=== PATIENT | female | born 1970 | race Caucasian/White ===

== ENCOUNTER 2020-08-30 10:21 | Inpatient (IN) | payer MEDICAID ==
[~2020-08-30] VITALS: Ht 160 cm; Wt 57.1 kg
--- NOTE | 2020-08-30 10:59 | NUR ---
PT STATES SHE WOKE WITH BLURRED VISION IN R EYE LASTING 2 HOURS, PT WENT TO FOUND TO BE HYPERTENSIVE AND SENT HERE, PT DENIES HX HTN HAS NEVER TAKEN MEDICATIONS FOR HTN , ALTHOUGH HAS FAMILY HX. PT CURRENTLY WITH NO VISION CHANGES, NO [place] REPORTED, NO CP. PT BP 211/111. ER MD IN TO EVAL PT AT THIS TIME, AWAITING ORDERS. PT TO BP, CONT PULSE OX
--- NOTE | 2020-08-30 11:17 | NUR ---
OK WITH ERMD TO HOLD OFF ON PIV PLACEMENT AT THIS TIME, PT FEARFUL OF NEEDLES. PT MEDICATED PER NOV, WILL RE-EVAL
[2020-08-30] MEDS ORDERED: SODIUM CHLORIDE FLUSH 10ML SYR IVF ONE (11:30)
[2020-08-30 11:36] LABS: BASOPHILS % (AUTO) 0 % (0-1); EOSINOPHILS % (AUTO) 1 % (1-7); LYMPHOCYTES % (AUTO) 26 % (22-44); MEAN CORPUSCULAR HEMOGLOBIN 33.3 pg (27.0-34.8); MEAN PLATELET VOLUME 8.5 fL (7.4-10.4); MONOCYTES % (AUTO) 26 % (2-9); NEUTROPHILS % (AUTO) 47 % (42-75); PLATELET COUNT 235 x10^3/uL (130-400); RED BLOOD COUNT 4.13 x10^6/uL (3.82-5.3); RED CELL DISTRIBUTION WIDTH 13.2 % (9.6-15.2)
[2020-08-30 11:52] LABS: TROPONIN I < 0.015 ng/mL (0.000-0.045)
[2020-08-30 12:08] LABS: MD SCAN
[2020-08-30 13:26] LABS: ANION GAP 8 mmol/L (5-15); CALCIUM 9.6 mg/dL (8.5-10.1); CHLORIDE 101 mmol/L (98-107); CREATININE 0.64 mg/dL (0.55-1.02)
--- NOTE | 2020-08-30 13:48 | NUR ---
REPORT TO SEERNA NUÑEZ
--- NOTE | 2020-08-30 13:58 | NUR ---
PT RESTING IN [facility], NAD NOTED AT THIS TIME, WILL CONTINUE TO MONITOR. PER PT NO NEEDS AT THIS TIME.
[2020-08-30] MEDS ORDERED: ASPIRIN 81 MG TABLET CHEW ONE (14:45)
[2020-08-30] MEDS ORDERED: LISINOPRIL 10 MG TABLET ONE (14:51)
[2020-08-30] MEDS ORDERED: LISINOPRIL 10 MG TABLET PO ONE (15:00)
[2020-08-30] MEDS ORDERED: ASPIRIN 81 MG TABLET CHEW PO ONE (15:00)
[2020-08-30] MEDS ORDERED: GADOTERATE 7.5 MMOL/15 ML VIAL ONE (17:52)
[2020-08-30] MEDS ORDERED: HYDROmorphone 2 MG/ML, 1ML IVPush PRN (18:00)
[2020-08-30] MEDS ORDERED: TEMAZEPAM 15 MG CAPSULE PO PRN (18:00)
[2020-08-30] MEDS ORDERED: LACTATED RINGERS 1,000 ML IV SCH (18:00)
[2020-08-30] MEDS ORDERED: hydrALAzine 20 MG/ML, 1ML IVPush PRN (18:00)
[2020-08-30] MEDS ORDERED: ACETAMINOPHEN 325 MG TABLET PO PRN (18:00)
[2020-08-30] MEDS ORDERED: ONDANSETRON ODT 4 MG PO PRN (18:00)
[2020-08-30] MEDS ORDERED: HYDROcodone/APAP 5/325 TABLET PO PRN (18:00)
[2020-08-30] MEDS ORDERED: BISACODYL 10 MG SUPP PR PRN (18:00)
[2020-08-30] MEDS ORDERED: ONDANSETRON 2MG/ML, 2ML IVPush PRN (18:00)
[2020-08-30] MEDS ORDERED: POLYETHYLENE GLYCOL 17 GM PACKET PO PRN (18:00)
[2020-08-30] MEDS ORDERED: OMNIPAQUE 350 MG/ML, 100ML BOTTLE ONE (18:46)
[2020-08-30] MEDS ORDERED: AMLODIPINE 5 MG TABLET ONE (20:40)
[2020-08-30] MEDS ORDERED: HEPARIN 5,000 UNITS/ML, 1ML ONE (20:41)
[2020-08-30] MEDS: AMLODIPINE 5 MG TABLET PO SCH ×2 (20:43→21:53)
[2020-08-30] MEDS: HEPARIN 5,000 UNITS/ML, 1ML SQ SCH (20:43)
[2020-08-30 22:24] VITALS: BP 146/94
[2020-08-31] VITALS (8 sets, daily range): BP systolic 136–174; BP diastolic 86–103
[2020-08-31 02:15] LABS: MICROSCOPIC NOT IND
[2020-08-31] MEDS: ASPIRIN 81 MG TABLET EC PO SCH (05:34)
[2020-08-31] MEDS: HEPARIN 5,000 UNITS/ML, 1ML SQ SCH ×3 (05:34→20:23)
[2020-08-31 06:20] LABS: BASOPHILS % (AUTO) 1 % (0-1); EOSINOPHILS % (AUTO) 2 % (1-7); LYMPHOCYTES % (AUTO) 33 % (22-44); MEAN CORPUSCULAR HEMOGLOBIN 32.9 pg (27.0-34.8); MEAN CORPUSCULAR HGB CONC 33.7 g/dL (32.4-35.8); MEAN PLATELET VOLUME 8.6 fL (7.4-10.4); MONOCYTES % (AUTO) 26 % (2-9); NEUTROPHILS % (AUTO) 38 % (42-75); PLATELET COUNT 288 x10^3/uL (130-400); RED BLOOD COUNT 4.08 x10^6/uL (3.82-5.3); RED CELL DISTRIBUTION WIDTH 13.1 % (9.6-15.2)
[2020-08-31 06:24] LABS: ALBUMIN 3.7 g/dL (3.4-5.0); ANION GAP 3 mmol/L (5-15); CALCIUM 9.4 mg/dL (8.5-10.1); CHLORIDE 102 mmol/L (98-107)
[2020-08-31 06:42] LABS: MD NO
[2020-08-31 06:51] LABS: ALANINE AMINOTRANSFERASE 144 U/L (12-78); ALKALINE PHOSPHATASE 128 U/L (45-117); BILIRUBIN,TOTAL 0.9 mg/dL (0.2-1.0); CHOL/HDL RATIO 3.3; CHOLESTEROL, TOTAL 213 mg/dL (140-239); CREATININE 0.71 mg/dL (0.55-1.02); HDL CHOL % 30 % (28-40); HDL CHOLESTEROL (DIRECT) 64 mg/dL (40-60); LDL CHOLESTEROL,CALCULATED 132 mg/dL (54-169); LDL/HDL RATIO 2.1 (0.5-3.0); TOTAL PROTEIN 8.7 g/dL (6.4-8.2); TRIGLYCERIDES 85 mg/dL (50-200); VLDL CHOLESTEROL 17 mg/dL (0-25)
[2020-08-31 07:22] LABS: HCT (SEDRATE) 39.9 % (34.6-47.8)
[2020-08-31] MEDS ORDERED: MAGNESIUM SULFATE PMX 4GM/100M 100 ML ONE (07:23)
[2020-08-31] MEDS ORDERED: MAGNESIUM SULFATE PMX 4GM/100M 100 ML IVPB ONE (07:30)
[2020-08-31] MEDS: AMLODIPINE 5 MG TABLET PO SCH ×2 (07:32→20:22)
[2020-08-31] MEDS: PANTOPRAZOLE 40MG TABLET PO SCH (07:32)
[2020-08-31] MEDS ORDERED: LISINOPRIL 10 MG TABLET PO SCH (09:00)
[2020-08-31] MEDS: LISINOPRIL 10 MG TABLET PO SCH (20:23)
[2020-08-31] MEDS ORDERED: LISI-167 PO (21:53)
[2020-08-31] MEDS ORDERED: MELA5TAB14 PO (21:53)
[2020-08-31] MEDS ORDERED: AMLO-150 PO (21:53)
[2020-08-31] MEDS ORDERED: ASPI81TA45 PO (21:53)
[2020-09-01] MEDS ORDERED: hydrALAzine 20 MG/ML, 1ML IVPush PRN
[2020-09-01 00:15] VITALS: BP 120/77
[2020-09-01 04:30] VITALS: BP 144/82
[2020-09-01] MEDS: ASPIRIN 81 MG TABLET EC PO SCH (04:35)
[2020-09-01] MEDS: HEPARIN 5,000 UNITS/ML, 1ML SQ SCH ×2 (04:36→11:05)
[2020-09-01 05:01] LABS: ANION GAP 6 mmol/L (5-15); CALCIUM 9.1 mg/dL (8.5-10.1); CHLORIDE 104 mmol/L (98-107); CREATININE 0.73 mg/dL (0.55-1.02)
[2020-09-01] MEDS: PANTOPRAZOLE 40MG TABLET PO SCH (07:30)
[2020-09-01 07:45] VITALS: BP 149/95
[2020-09-01] MEDS: LISINOPRIL 10 MG TABLET PO SCH (08:10)
[2020-09-01] MEDS: AMLODIPINE 5 MG TABLET PO SCH (08:10)
[2020-09-01] MEDS ORDERED: AMOX1TAB64 PO (10:18)
[2020-09-01 13:32] VITALS: BP 137/85
== END 2020-09-01 16:58 | disposition home or self-care (01) | DRG 125 ==
LOC: ED 11:31 → EDIP 14:54 → 4WST 22:15
PROVIDERS: ADMIT Internal Medicine; ATTEND Internal Medicine
DX: H35.039 Hypertensive retinopathy, unspecified eye (principal); H53.129 Transient visual loss, unspecified eye; I16.1 Hypertensive emergency; E87.1 Hypo-osmolality and hyponatremia; E53.8 Deficiency of other specified B group vitamins; E78.5 Hyperlipidemia, unspecified; E83.42 Hypomagnesemia; H54.61 Unqualified visual loss, right eye, normal vision left eye; J01.00 Acute maxillary sinusitis, unspecified; Z79.82 Long term (current) use of aspirin; Z82.3 Family history of stroke; Z82.49 Family history of ischemic heart disease and other diseases of the circulatory system
CPT/HCPCS: 36415; 70450; 70496; 70498; 70553; 71045; 80048; 80053; 80061; 81003; 82607; 83036; 83735; 83880; 84100; 84443; 84484; 85025; 85651; 86592; 93005; 93306; 96374; 99285; G0378; J1644; Q9967; A9575; J0360; J3475; J7120

== ENCOUNTER 2020-10-09 10:58 | Emergency (ER) | payer MEDICAID ==
[~2020-10-09] VITALS: Ht 160 cm; Wt 54.5 kg
[~2020-10-09 10:58] MED LIST: AMLO-150 PO; AMOX1TAB64 PO; ASPI81TA45 PO; LISI-167 PO; MELA5TAB14 PO
[2020-10-09 11:00] VITALS: BP 111/77
--- NOTE | 2020-10-09 11:34 | NUR ---
Pt states she just moved to [place]. Pt given primary care reference list and RX.
== END 2020-10-09 11:46 | disposition home or self-care (01) ==
LOC: ED 11:30
DX: I10 Essential (primary) hypertension (principal); Z76.0 Encounter for issue of repeat prescription
CPT/HCPCS: 99281

== ENCOUNTER 2021-04-11 11:01 | Emergency (ER) | payer MEDICAID ==
[~2021-04-11] VITALS: Ht 160 cm; Wt 54.0 kg
[2021-04-11 13:23] LABS: MEAN CORPUSCULAR HEMOGLOBIN 35.9 pg (27.0-34.8); MEAN CORPUSCULAR HGB CONC 33.7 g/dL (32.4-35.8); MEAN PLATELET VOLUME 8.2 fL (7.4-10.4); PLATELET COUNT 246 x10^3/uL (130-400); RED BLOOD COUNT 2.78 x10^6/uL (3.82-5.3); RED CELL DISTRIBUTION WIDTH 16.3 % (9.6-15.2)
--- NOTE | 2021-04-11 13:25 | NUR ---
THIS IS A 50 YO F W/ C/O BILAT ANKLE EDEMA X2 WEEKS. PT REPORTS ONLY MEDICAL HX IS HTN. PT DENIES PAIN. PT RESTING ON [employer] W/ CALL LIGHT IN REACH, SIDE RAILS UPX2. NATE NICHOLS.
[2021-04-11 13:34] LABS: ALBUMIN 2.9 g/dL (3.4-5.0); ANION GAP 8 mmol/L (5-15); CALCIUM 8.5 mg/dL (8.5-10.1); CHLORIDE 98 mmol/L (98-107)
[2021-04-11 13:39] LABS: ALANINE AMINOTRANSFERASE 32 U/L (12-78); ALKALINE PHOSPHATASE 181 U/L (45-117); BILIRUBIN,TOTAL 3.1 mg/dL (0.2-1.0); CREATININE 0.69 mg/dL (0.55-1.02); TOTAL PROTEIN 8.6 g/dL (6.4-8.2)
--- NOTE | 2021-04-11 14:13 | NUR ---
BREAK RN US AT BEDSIDE NOW
[2021-04-11 14:14] LABS: ANISOCYTOSIS 1+; BANDS%(MANUAL) 8 % (0-7); LYMPHS% (MANUAL) 10 % (22-44); MONOS% (MANUAL) 13 % (2-9); SEGS% (MANUAL) 69 % (42-75)
[2021-04-11 14:15] LABS: <PLATELET ESTIMATE> ADEQUATE; <PLT MORPHOLOGY> NORMAL PLT MORPH; OVALOCYTES 1+; POLYCHROMASIA 1+
--- NOTE | 2021-04-11 15:10 | NUR ---
PT AMBULATED TO THE BR W/ A STEADY GAIT. RESP EVEN AND UNLABORED, NADN.
[2021-04-11 15:16] VITALS: BP 124/78
== END 2021-04-11 14:44 ==
LOC: ED 14:43
DX: R60.0 Localized edema (principal); E87.1 Hypo-osmolality and hyponatremia; R00.0 Tachycardia, unspecified; R07.9 Chest pain, unspecified; I10 Essential (primary) hypertension
CPT/HCPCS: 36415; 71045; 76705; 80053; 80074; 83880; 85025; 93005; 99285